=== PATIENT | male | born 1980 | race Caucasian/White ===

== ENCOUNTER 2021-01-14 20:52 | Emergency (ER) | payer MEDICAID ==
[~2021-01-14] VITALS: Ht 167.6 cm; Wt 74.8 kg
--- NOTE | 2021-01-14 21:15 | NUR ---
Patient placed in hallway sitting down in chair due to no beds available in the ER at this time.
--- NOTE | 2021-01-14 21:20 | NUR ---
Patient stated "I need to meet my family member outside to give them something." Patient left ER and did not return back.
--- NOTE | 2021-01-14 21:30 | NUR ---
Patient eloped from facility. ER physician notified.
== END 2021-01-14 21:30 | disposition left against medical advice (07) ==
LOC: ER 20:52
DX: Z53.21 Procedure and treatment not carried out due to patient leaving prior to being seen by health care provider (principal)